=== PATIENT | female | born 2000 | race Caucasian/White ===

== ENCOUNTER 2024-06-05 13:03 | Emergency (ER) | payer OTHER, SELFPAY ==
[2024-06-05 13:24] VITALS: BP 91/59; PULSE 74; RESP 18; TEMP 36.9; O2SAT 100; BMI 20.1
--- NOTE | 2024-06-05 13:33 | ED.GENADULT ---
HPI - General Adult General Chief complaint: Allergic Reaction Stated complaint: body [id number] Time Seen by Provider: 06/05/24 13:32 Source: patient Mode of arrival: ambulatory Limitations: no limitations History of Present Illness ED Provider: Nirav ATWOOD HPI narrative: 24-year-old female with no past medical history presents to ED for waking up this morning with rash on face, rash on chest, rash on abdomen and extremities with swollen lips. Patient states rash were itchy. Patient took Benadryl and itchiness and rash started resolving. Patient denies any chest pain, shortness of breath, fever, chills, or sensation of throat closing. Related Data Previous Rx's ?Medication ?Instructions ?Recorded diphenhydramine HCl 25 mg capsule 25 mg PO TID PRN itching 5 days 06/05/24 (Benadryl) #15 caps famotidine 40 mg tablet (Pepcid) 40 mg PO DAILY 5 days #5 tabs 06/05/24 prednisone 20 mg tablet 40 mg (2 x 20 mg) PO DAILY 5 days 06/05/24 #10 tabs Allergies Allergy/AdvReac Type Severity Reaction Status Date / Time No Known Allergies Allergy Verified 06/05/24 13:32 Review of Systems Review of Systems: Itchy rash, swollen lips Yes all other systems are reviewed and are negative PMFSH Social History Social History Advance Directives: No Advance Directives Information Provided: Yes Do you have a plan to hurt others: No Plan Physical Exam ED Vital Signs: Vital Signs - 24 hr 06/05/24 13:24 06/05/24 13:45 06/05/24 14:02 Temperature 98.4 F 98.4 F Pulse Rate 74 74 Respiratory Rate 18 18 Blood Pressure 91/59 L 104/55 L 104/55 L Pulse Oximetry 100 97 Oxygen Delivery Method Room Air Room Air BMI result Body Mass Index 20.1 Const General: cooperative, healthy appearing, comfortable, no acute distress, well developed, alert, awake and Physically active Orientation/consciousness: patient oriented x3 HENMT Other: Presently no swelling of lips, tongue, face, eyes, or drooling change in voice. Resolving itchy rash on face. Head: Yes normal to inspection, Yes No palpable skull fracture present, Yes normocephalic, Yes atraumatic and No abrasion Eyes General: appearance normal, both eyes and all related structures Neck Neck: Yes normal visual inspection, Yes full ROM, Yes no lymphadenopathy, Yes no meningeal signs, Yes trachea midline, Yes supple, No anterior neck swelling and No tender Neck images: 1. Resolving uticaria Chest Chest palpation & inspection: normal inspection of the chest and normal palpation of entire chest wall Resp Effort & Inspection: normal respiratory effort and able to speak in complete sentences Cardio Jugular venous distension: no JVD Heart sounds: S1 normal heart sound present and S2 normal heart sound present GI Inspection: Yes normal to inspection Palpation (GI): Soft to palpation, not firm, nontender, no guarding and not rigid General: No CVA tenderness and Yes no CVA tenderness Back/Spine/Pelvis Back: no CVA tenderness, No CVA tenderness and No back tenderness Skin Other: Resolved with uticaria rash on forearm other extremities chest, and face. General skin exam: no rashes or lesions noted, elasticity normal and turgor normal Neuro General: patient oriented x3, gait normal, tone normal, moves all extremities, Normal light touch and pain sensation, no meningeal signs, no focal motor deficits, CN's II-XI intact bilaterally and normal sensation to monofilament Extrem General: Yes normal to inspection, Yes full ROM and Yes capillary refill normal Psych Appearance: grossly normal, well kempt and not disheveled Medical Decision Making Medical Decision Making MDM Narrative: 24 yold female with no pmh presents to the ED for itchy rash that is resolving and also resolved facial swelling. Negative for signs of anaphylaxis. Not suspecting strep. Not suspecting Abelino Gianni syndrome, cellulitis, necrotizing fasciitis, Lyme disease tick rash, viral rash. Patient explained worrisome signs informed to follow up primary care provider. Differential Diagnosis Differential Diagnoses: The differential diagnosis associated with the presentation includes (Allergic reaction, anaphylaxis,) Admission/Observation Consideration of admission/observation: Escalation of care including admission/observation considered Independent Historian Clinical information obtained from an independent historian. History obtained from or confirmed by: Other (Patient) External Record Review External record reviewed: Other (Visits) Prescription Management I considered prescription management with: Other (Benadryl, steroids, Pepcid) Discharge Plan Discharge Clinical Impression: Allergic reaction Patient Disposition: Home, Self-Care Instructions: General Allergic Reaction (ED) Additional Instructions: Recommend follow-up with primary care provider. Recommend patch test by primary provider. Return to the ED immediately for fever, chills, worsening rash, swelling of lips, swelling face, swelling of tongue, sensation of throat closing, peeling rash, neck stiffness, headache, dizziness, shortness of breath, chest pain, or any other concerning symptoms. Prescriptions: New diphenhydramine HCl [Benadryl] 25 mg capsule 25 mg PO TID PRN (Reason: itching) 5 Days Qty: 15 0RF prednisone 20 mg tablet 40 mg PO DAILY 5 Days Qty: 10 0RF famotidine [Pepcid] 40 mg tablet 40 mg PO DAILY 5 Days Qty: 5 0RF Stand Alone Forms: Work/School Release Interventions: ED Discharge Assessment Last Done: 06/05/24 13:45 Discharge Date/Time: 06/05/24 14:49 Print Language: Palestinian
[2024-06-05 13:45] VITALS: BP 104/55; PULSE 74; RESP 18; TEMP 36.9; O2SAT 97
[2024-06-05 14:02] VITALS: BP 104/55
== END 2024-06-05 14:49 | disposition home or self-care (01) ==
PROVIDERS: Emergency Provider Emergency Medicine
DX: L50.0 Allergic urticaria (principal); M79.10 Myalgia, unspecified site
CPT/HCPCS: 99282